=== PATIENT | male | born 1965 | race Caucasian/White ===

== ENCOUNTER 2016-03-03 18:10 | Emergency (ER) | payer OTHER ==
[~2016-03-03] VITALS: Ht 172.7 cm; Wt 63.5 kg
[~2016-03-03 18:10] MED LIST: KETOROLAC TROME10 M1 PO; MEDROL4 M2 PO; TRAMADOL HCL50 M1 PO
[2016-03-03] MEDS ORDERED: DICLOFENAC SODI75 M2 PO (19:21)
[2016-03-03] MEDS ORDERED: MULTI-DAY VITA1 EACH PO (19:22)
[2016-03-03] MEDS ORDERED: VITAMIN C500 M6 PO (19:22)
--- NOTE | 2016-03-03 19:23 | ED GI/GU/ABDOMINAL COMPLAINT ---
History of Present Illness General Chief Complaint: Abdominal Pain/Flank Pain Stated Complaint: SENT BY URGENT CARE FOR ABD. PAIN R/O APPY Source: patient Exam Limitations: no limitations Vital Signs & Intake/Output Vital Signs & Intake/Output Vital Signs Date Time Temp Pulse Resp B/P Pulse O2 O2 Flow FiO2 Ox Delivery Rate 03/03 2208 98.0 84 18 132/72 97 Room Air 03/03 2202 Room Air 03/03 2000 98.8 94 16 129/72 95 Room Air 03/03 1835 99.2 99 20 124/79 98 Room Air ED Intake and Output 03/04 0000 03/03 1200 Intake Total 1000 Output Total Balance 1000 Intake, IV 1000 Patient 140 lb Weight Allergies Coded Allergies: No Known Allergies (10/13/15) Triage Note: PT TO ED C/O LOWER ABD PAIN SINCE TUESDAY NIGHT. DENIES N/V/D. DENIES S/S. POOR PO INTAKE FOR THE PAST 2 DAYS. PT WENT TO URGENT CARE AND WAS TOLD TO COME TO ED FOR FURTHER EVAL TO R/O APPY. Triage Nurses Notes Reviewed? yes HPI: this patient is a 50-year-old male who presented to the emergency department today for evaluation of abdominal pain 4 days. The patient reported that he woke up after falling asleep on his couch Tuesday evening and noticed a pain in his lower, mid abdomen. The patient reported that it has been constant since onset and nonradiating. It is located underneath his umbilicus. The pain is sharp and cramping. It is worse with movement. The patient did not try taking any medication for his pain prior to arrival in the emergency department. No palliative factors. The patient reported that he has been having intermittent feelings of, "hot and cold." Associated nausea. He reported that he has not had anything to eat or drink since Tuesday. He reported that he tried having a coffee Tuesday morning, but reported that it made the pain worse and caused him to feel nauseous. The patient also reported that he has not had a bowel movement since Tuesday. He denied any chest pain, difficulty breathing, headaches, vomiting, back pain, numbness or tingling in his extremities, diarrhea, blood in the stool, or any urinary burning, urgency, frequency, or blood in the urine. (JOSE SOMERS,JT) Reconcile Medications Ascorbate Calcium (Vitamin C) (Unknown Strength) TABLET (Unknown Dose) PO DAILY SUPPLEMENT (Reported) Bisacodyl (Dulcolax) 5 MG TABLET. 4 TAB PO DAILY PRN COLITIS Diclofenac Sodium 75 MG TABLET. 1 TAB PO BID PAIN/INFLAMMATION (Reported) Multivitamin (Multi-Day Vitamins) 1 EACH TABLET 1 TAB PO DAILY SUPPLEMENT ( Reported) Psyllium Husk (Metamucil) 0.52 GRAM CAPSULE 1 CAP PO DAILY PRN COLITIS (KAMLESH GIBSON DO) Past History Travel History Traveled to [place] past 21 day No Medical History Any Pertinent Medical History? see below for history Surgical History Surgical History: hand surgeries bilaterally Psychosocial History What is your primary language Malawian Tobacco Use: Current Daily Use Daily Tobacco Use Amount/Type: => 5 Cigarettes daily ETOH Use: denies use Illicit Drug Use: denies illicit drug use Family History Hx Contributory? No (JT GARCIA PA-C) Review of Systems Review of Systems Constitutional: Reports: see HPI. EENTM: Reports: no symptoms. Respiratory: Reports: no symptoms. Cardiovascular: Reports: no symptoms. GI: Reports: see HPI. Genitourinary: Reports: no symptoms. Musculoskeletal: Reports: no symptoms. Skin: Reports: no symptoms. Neurological/Psychological: Reports: no symptoms. All Other Systems: Reviewed and Negative (JT GARCIA PA-C) Physical Exam Physical Exam Gastrointestinal: normal bowel sounds, soft, no organomegaly, nondistended. Rebound with no guarding upon palpation in all quadrants. Positive McBurney's point tenderness. Negative Rovsing sign. Positive psoas sign. Negative Floyd sign. No masses appreciated. Tenderness to palpation inferior to the umbilicus. Comments: Well-developed well-nourished person in no acute distress HEENT: Normal EENT exam, head normocephalic, moist mucous membranes Neck: Supple, no lymphadenopathy Back: Normal gait. Normal inspection. No CVA tenderness. No paraspinal musculature tenderness. No midline tenderness Cardiovascular: Regular rate and rhythm with no murmurs, rubs, or gallops Respiratory: No respiratory distress. Speaking in full sentences. Lungs clear to auscultation bilaterally Extremity: Normal and equal pulses Neuro: Alert oriented x3, cranial nerves normal as tested Skin: No appreciable rash on exposed skin, skin is warm and dry. Psych: Mood and affect is normal Core Measures ACS in differential dx? No Severe Sepsis Present: No Septic Shock Present: No (JOSE SOMERS,JT) Progress Differential Diagnosis: AAA, AMI, appendicitis, biliary colic, bowel obstruction , colon cancer, cholecystitis, diverticulitis, gastritis, hepatitis, ischemic bowel, inflamm bowel dis, pancreatitis, PUD/GERD, perforated viscous, pyelonephritis, ureterolithiasis, urinary retention, urethritis, UTI/pyelo Diagnostic Imaging: Viewed by Me: CT Scan. Discussed w/RAD: CT Scan. Radiology Impression: PATIENT: CAMILO VAUGHAN PRESENT AGE: 50 PATIENT ACCOUNT NO: [id number] : 66 LOCATION: [facility] ORDERING PHYSICIAN: JT GARCIA PA-C SERVICE DATE: 03/03/16 EXAM TYPE: CAT - CT ABD & PELVIS W IV CONTRAST EXAMINATION: CT ABDOMEN AND PELVIS WITH CONTRAST CLINICAL INFORMATION: Abdominal pain. COMPARISON: None. TECHNIQUE: Multidetector volumetric imaging was performed of the abdomen and pelvis before and after the IV administration of 95 mL of Optiray 320 intravenous contrast. Sagittal and coronal reformatted images were obtained on the technologist's workstation. DLP: 282.21 mGy-cm. FINDINGS: LUNG BASES: Linear scarring atelectasis at the posterior left costophrenic angle. LIVER, GALLBLADDER, AND BILIARY TREE: The liver is normal in size, shape, and attenuation. No focal hepatic lesion or biliary ductal dilatation is present. The gallbladder is unremarkable with no evidence of radiopaque gallstones, gallbladder wall thickening, or obvious pericholecystic inflammatory changes. PANCREAS: Unremarkable. SPLEEN: Unremarkable. ADRENAL GLANDS: Unremarkable. KIDNEYS AND URETERS: The kidneys are normal in size, shape, and attenuation. No hydronephrosis, hydroureter, or calculi seen. No perinephric stranding. BLADDER: Unremarkable. GASTROINTESTINAL TRACT: There is edema in the presacral space and around the distal rectum and sigmoid. The distal rectum and sigmoid is collapsed with no stool and no edema of the wall. The proximal sigmoid though is packed with stool. Small segment of the sigmoid bowel just proximal to this collection of stool is a little thickened but without edema. Moderate volume of stool in the remainder of the colon. There is a large volume of fluid in the lumen of the ascending colon mixed with a small volume of stool but none of the bowel loops are abnormally edematous or thickened. The small bowel loops are normal. The appendix is normal. ABDOMINAL WALL: Small fat-containing umbilical hernia. LYMPH NODES: No bulky lymphadenopathy. There are coarse calcifications at the lisa hepatis anterior to the IVC, that are likely and small calcified lymph nodes. VASCULAR: Unremarkable. PELVIC VISCERA: Unremarkable. OSSEOUS STRUCTURES: Unremarkable. IMPRESSION: The distal rectum and sigmoid is decompressed with no significant stool but there is edema around this segment of the bowel and there is presacral soft tissue fluid edema. Focal colitis should be considered. There is a large collection of stool more proximal in the sigmoid and a small area of focal thickening of the sigmoid just proximal to the stool collection but without significant edema. The appendix is normal. This critical result was discussed with Dr. Gibson on 03/03/2016, 9:10 PM and it was ascertained that the content and urgency of the report was understood at the time of direct communication. DICTATED BY: MANUEL KAUFFMAN MD DATE/TIME DICTATED:03/03/162045 CORE SHAPER SIDES:ROCAEL DATE/TIME TRANSCRIBED:03/03/162045 CONFIDENTIAL, DO NOT COPY WITHOUT APPROPRIATE AUTHORIZATION. <Electronically signed in Other Vendor System> SIGNED BY: MANUEL KAUFFMAN MD 03/03/16 5427 Initial ED EKG: none Comments: 03/03/2016 9:57:33 PM: Discussed this patient with Dr. Gibson. Radiology paged Dr. Gibson to discuss the results of the CT scan with him. Possible focal colitis. Recommended that this patient be discharged home with GI follow-up and Metamucil and Dulcolax. Discussed these results of the patient who is in agreement with the plan. (JOSE SOMERS,JT) Plan of Care: Orders Procedure Date/time Status LIPASE 03/03 1919 Complete LACTIC ACID 03/03 1919 Complete HIGH SENSITIVITY CRP 03/03 1919 Complete C-REACTIVE PROTEIN 03/03 1919 Complete AMYLASE 03/03 1919 Complete COMPREHENSIVE METABOLIC PANEL 03/03 183 Complete CBC WITHOUT DIFFERENTIAL 03/03 1829 Complete Laboratory Tests 03/03/16 2216: Lactic Acid Cancelled 03/03/161919: Anion Gap 15, Estimated GFR > 60, BUN/Creatinine Ratio 18.8, Glucose 98, Lactic Acid 1.2, Calcium 9.2, Total Bilirubin 0.7, AST 16 L, ALT 33, Alkaline Phosphatase 118, C-Reactive Prot, Quant > 9.0 H, C-React Prot High Sens > 15.0 H, Total Protein 7.5, Albumin 4.0, Globulin 3.5, Albumin/Globulin Ratio 1.1, Amylase < 30 L, Lipase 23, CBC w Diff MAN DIFF ORDERED, RBC 4.63 L, MCV 88.9, MCH 29.8, RDW 14.8 H, MPV 7.4, Gran % 86.2 H, Lymphocytes % 6.5 L, Monocytes % 7.3, Eosinophils % 0, Basophils % 0 L, Absolute Granulocytes 13.2 H, Segmented Neutrophils 83 H, Band Neutrophils 5, Absolute Lymphocytes 1.0 L, Lymphocytes 6 L, Monocytes 5, Absolute Monocytes 1.1 H, Absolute Eosinophils 0 , Absolute Basophils 0, Metamyelocytes 1, Platelet Estimate ADEQUATE, Anisocytosis 1+, PUBS MCHC 33.5 03/03/16 1916: Lactic Acid Cancelled, C-React Prot High Sens Cancelled, Amylase Cancelled, Lipase Cancelled, Urine Color Cancelled, Urine Clarity Cancelled, Urine pH Cancelled, Ur Specific Bedrock Cancelled, Urine Protein Cancelled, Urine Ketones Cancelled, Urine Nitrite Cancelled, Urine Bilirubin Cancelled, Urine Urobilinogen Cancelled, Ur Leukocyte Esterase Cancelled, Ur Microscopic Cancelled, Urine Hemoglobin Cancelled, Urine Glucose Cancelled 03/03/16 1830: Urine Color Cancelled, Urine Clarity Cancelled, Urine pH Cancelled, Ur Specific Bedrock Cancelled, Urine Protein Cancelled, Urine Ketones Cancelled, Urine Nitrite Cancelled, Urine Bilirubin Cancelled, Urine Urobilinogen Cancelled, Ur Leukocyte Esterase Cancelled, Ur Microscopic Cancelled, Urine Hemoglobin Cancelled, Urine Glucose Cancelled Departure Departure Disposition: HOME OR SELF CARE Condition: Stable Clinical Impression Primary Impression: Colitis Referrals: PEDRITO GODWIN,ILAN ROBERSON MD,DEBORAH (PCP/Family) Additional Instructions: Take Dulcolax and Metamucil as prescribed. Please call the doctor podiatric medicine whose information has been provided to you in this packet first thing in the morning to schedule an appointment for further evaluation and management of your symptoms. Return to the emergency department for any worsening symptoms or concerns. Departure Forms: Customer Survey General Discharge Information Prescriptions: Current Visit Scripts Psyllium Husk (Metamucil) 1 CAP PO DAILY PRN COLITIS #14 Bisacodyl (Dulcolax) 4 TAB PO DAILY PRN COLITIS #4 TAB (JOSE SOMERS,JT) Departure Comments 03/03/16 11:16 PM I reviewed the CT scan results and discussed them with the radiologist in detail. No evidence of obstruction. No evidence of ischemic bowel. Appendix is normal. No diverticulitis. Findings consistent with focal colitis. I called the patient at home. He is comfortable. He will follow-up with the doctor podiatric medicine this week and call for appointment tomorrow. He was told that should he have any abdominal pain tomorrow that he should return to the ED for reevaluation at 10 AM and that I should be paged. He understood the discharge instructions. (KAMLESH GIBSON DO)
[2016-03-03 19:32] LABS: ABSOLUTE BASOPHIL COUNT 0 /CUMM (0.0-0.2); ABSOLUTE EOSINOPHIL COUNT 0 /CUMM (0.0-0.7); ABSOLUTE GRANULOCYTE CT 13.2 /CUMM (1.4-6.5); ABSOLUTE MONOCYTE COUNT 1.1 /CUMM (0.10-0.60); BASOPHIL % 0 % (0.0-2.0); EOSINOPHIL % 0 % (0-5); HEMATOCRIT 41.2 % (42-52); MEAN CORPUSCULAR HGB 29.8 PG (27.0-31.0); MEAN CORPUSCULAR HGB CONC 33.5 G/DL (33.0-37.0); MEAN CORPUSCULAR VOLUME 88.9 FL (80.0-94.0); MEAN PLATELET VOLUME 7.4 FL (7.4-10.4); PLATELET COUNT 338 /CUMM (130-400); RBC DISTRIBUTION WIDTH 14.8 % (11.5-14.5); RED BLOOD CELL CT 4.63 /CUMM (4.70-6.10); WHITE BLOOD CELL COUNT 15.3 /CUMM (4.8-10.8)
[2016-03-03 19:33] LABS: GRANULOCYTE % 86.2 % (42.2-75.2)
--- NOTE | 2016-03-03 21:51 | CT SCAN REPORT ---
EXAMINATION: CT ABDOMEN AND PELVIS WITH CONTRAST CLINICAL INFORMATION: Abdominal pain. COMPARISON: None. TECHNIQUE: Multidetector volumetric imaging was performed of the abdomen and pelvis before and after the IV administration of 95 mL of Optiray 320 intravenous contrast. Sagittal and coronal reformatted images were obtained on the technologist's workstation. DLP: 282.21 mGy-cm. FINDINGS: LUNG BASES: Linear scarring atelectasis at the posterior left costophrenic angle. LIVER, GALLBLADDER, AND BILIARY TREE: The liver is normal in size, shape, and attenuation. No focal hepatic lesion or biliary ductal dilatation is present. The gallbladder is unremarkable with no evidence of radiopaque gallstones, gallbladder wall thickening, or obvious pericholecystic inflammatory changes. PANCREAS: Unremarkable. SPLEEN: Unremarkable. ADRENAL GLANDS: Unremarkable. KIDNEYS AND URETERS: The kidneys are normal in size, shape, and attenuation. No hydronephrosis, hydroureter, or calculi seen. No perinephric stranding. BLADDER: Unremarkable. GASTROINTESTINAL TRACT: There is edema in the presacral space and around the distal rectum and sigmoid. The distal rectum and sigmoid is collapsed with no stool and no edema of the wall. The proximal sigmoid though is packed with stool. Small segment of the sigmoid bowel just proximal to this collection of stool is a little thickened but without edema. Moderate volume of stool in the remainder of the colon. There is a large volume of fluid in the lumen of the ascending colon mixed with a small volume of stool but none of the bowel loops are abnormally edematous or thickened. The small bowel loops are normal. The appendix is normal. ABDOMINAL WALL: Small fat-containing umbilical hernia. LYMPH NODES: No bulky lymphadenopathy. There are coarse calcifications at the lisa hepatis anterior to the IVC, that are likely and small calcified lymph nodes. VASCULAR: Unremarkable. PELVIC VISCERA: Unremarkable. OSSEOUS STRUCTURES: Unremarkable. IMPRESSION: The distal rectum and sigmoid is decompressed with no significant stool but there is edema around this segment of the bowel and there is presacral soft tissue fluid edema. Focal colitis should be considered. There is a large collection of stool more proximal in the sigmoid and a small area of focal thickening of the sigmoid just proximal to the stool collection but without significant edema. The appendix is normal. This critical result was discussed with Dr. Du on 03/03/2016, 9:10 PM and it was ascertained that the content and urgency of the report was understood at the time of direct communication.
[2016-03-03] MEDS ORDERED: DULCOLAX5 M1 PO (22:04)
[2016-03-03] MEDS ORDERED: METAMUCIL0.52 GM PO (22:04)
[2016-03-03 22:09] VITALS: BP 132/72
[2016-03-04] MEDS ORDERED: GOLYTELY PACKE1 EACH PO (15:51)
[2016-03-04] MEDS ORDERED: CITRATE OF MAG300 ML PO (15:51)
[2016-03-04] MEDS ORDERED: ZOFRAN4 M2 PO (16:10)
== END 2016-03-03 22:28 ==
LOC: ERH 18:10
PROVIDERS: Physician Assistant Medical
DX: K52.9 Noninfective gastroenteritis and colitis, unspecified (principal); R10.30 Lower abdominal pain, unspecified
CPT/HCPCS: 74177; 96374; J1885

== ENCOUNTER 2016-03-04 11:23 | Emergency (ER) | payer OTHER ==
[~2016-03-04] VITALS: Ht 172.7 cm; Wt 63.5 kg
[~2016-03-04 11:23] MED LIST changes: +DICLOFENAC SODI75 M2 PO; +DULCOLAX5 M1 PO; +METAMUCIL0.52 GM PO; +MULTI-DAY VITA1 EACH PO; +VITAMIN C500 M6 PO
--- NOTE | 2016-03-04 13:16 | ED GI/GU/ABDOMINAL COMPLAINT ---
History of Present Illness General Chief Complaint: Abdominal Pain/Flank Pain Stated Complaint: ABD PAIN DISCHARGED LAST NIGHT Source: patient, old records Exam Limitations: no limitations Allergies Coded Allergies: No Known Allergies (10/13/15) Reconcile Medications Ascorbate Calcium (Vitamin C) (Unknown Strength) TABLET (Unknown Dose) PO DAILY SUPPLEMENT (Reported) Bisacodyl (Dulcolax) 5 MG TABLET.DR 4 TAB PO DAILY PRN COLITIS Diclofenac Sodium 75 MG TABLET.DR 1 TAB PO BID PAIN/INFLAMMATION (Reported) Magnesium Citrate (Citrate Of Magnesia) 300 ML SOLUTION 296 ML PO ONCE CONSTIPATION Multivitamin (Multi-Day Vitamins) 1 EACH TABLET 1 TAB PO DAILY SUPPLEMENT ( Reported) Ondansetron HCl (Zofran) 4 MG TABLET 1 TAB PO Q6-8P PRN NAUSEA Peg 3350/Na Sulf,Bicarb,Cl/KCl (Golytely Packet) 227.1-21.5 POWD.PACK 1 PAC PO ONCE PRN CONSTIPATION MIX WITH 6-8 OZ OF WATER TAKE FOR CONSTIPATION Psyllium Husk (Metamucil) 0.52 GRAM CAPSULE 1 CAP PO DAILY PRN COLITIS Triage Note: C/O WORSENING MID ABDOMINAL PAIN X 4 DAYS, DENIES NAUSEA, VOMITING OR DIARRHEA. UNABLE TO EAT BUT CAN KEEP WATER DOWN. SEEN HERE YESTERDAY, DXD WITH COLITIS AFTER CT SCAN. PAIN WORSE TODAY. Triage Nurses Notes Reviewed? yes Duration: constant Timing: recent history Quality/Severity: sharpness, severe, stabbing Severity Numbers: 10 Location: generalized abdomen Radiation: no radiation Activities at Onset: none Prior Abdominal Problems: similar symptoms HPI: Patient is a 50-year-old male with concerns of a 5 day history of abdominal pain. It is noted through old records that patient has been complaining of lower mid abdominal pain has been constant and nonradiating located underneath the umbilicus. Pain is considered sharp and cramping worse with movement. Denies any palliative factors has associated symptoms of nausea Patient was seen and evaluated at [place] emergency room yesterday for concerns of symptoms in which she received blood work showing 15,000 white blood cell count and CT scan showing focal colitis. Patient was safely discharged home for patient returns today stating that since his discharge he's had worsening localized pain pain and distention. Patient has been tolerating toast and yogurt today with worsening pain however no vomiting has occurred. Last bowel movement was approximately 4 days ago. Patient states that he feels no better with the prescriptions of ketorolac administered from the emergency room. Patient did receive a phone call from emergency department Dr. Du and he advised patient to return to emergency room for concerning worsening symptoms. (SELAM WOODS) Vital Signs & Intake/Output Vital Signs & Intake/Output Vital Signs Date Time Temp Pulse Resp B/P Pulse O2 O2 Flow FiO2 Ox Delivery Rate 03/04 1529 18 122/58 97 03/04 1155 99.3 75 18 132/75 18 Room Air Past History Travel History Traveled to [facility] past 21 day No Medical History Any Pertinent Medical History? none Neurological: NONE Surgical History Surgical History: hand surgeries bilaterally Psychosocial History What is your primary language Guyanese Tobacco Use: Current Daily Use Daily Tobacco Use Amount/Type: => 5 Cigarettes daily ETOH Use: denies use Family History Hx Contributory? No (SELAM WOODS) Review of Systems Review of Systems Constitutional: Reports: no symptoms. EENTM: Reports: no symptoms. Respiratory: Reports: no symptoms. Cardiovascular: Reports: no symptoms. GI: Reports: see HPI, abdominal pain. Genitourinary: Reports: no symptoms. Musculoskeletal: Reports: no symptoms. Skin: Reports: no symptoms. Neurological/Psychological: Reports: no symptoms. Hematologic/Endocrine: Reports: no symptoms. Immunologic/Allergic: Reports: no symptoms. All Other Systems: Reviewed and Negative (SELAM WOODS) Physical Exam Physical Exam General Appearance: no apparent distress, alert Gastrointestinal: no organomegaly, distention, GENERALIZED POINT TENDERNESS Comments: Well-developed well-nourished person in no acute distress HEENT: Normal EENT exam, extraocular motion intact, no nystagmus. Pupils equally round and reactive to light and accommodation. Nose is atraumatic. External auditory canal and Tympanic membranes clear. Pharynx normal. No swelling or edema. Neck: Supple, no lymphadenopathy, normal range of motion without pain or tenderness Back: Nontender, no CVA tenderness. Cardiovascular: Regular rate and rhythms no murmurs rubs or gallops, normal JVP Respiratory: Chest nontender. No respiratory distress.breath sounds clear to auscultation bilaterally Extremity: No edema, no calf tenderness to palpation, normal and equal pulses. Neuro: Alert oriented x3, motor sensory normal, Skin: No appreciable rash on exposed skin, skin is warm and dry. Psych: Mood and affect is normal, memory and judgment is normal. Core Measures ACS in differential dx? No Severe Sepsis Present: No Septic Shock Present: No (KERRI SILVER,SELAM) Progress Differential Diagnosis: AAA, AMI, appendicitis, biliary colic, bowel obstruction , colon cancer, cholecystitis, diverticulitis, epididymitis, esophageal varices, gastritis, hepatitis, hernia, hemorrhoids, ischemic bowel, inflamm bowel dis, Leatha-Luis tear, orchitis, pancreatitis, prostatitis, peptic ulcer, PUD/GERD, perforated viscous, pyelonephritis, SBO, STD, testicular torsion, ureterolithiasis, urinary retention, urethritis, UTI/pyelo Diagnostic Imaging: Viewed by Me: CT Scan. Radiology Impression: SEE COMMENTS Initial ED EKG: none Comments: PATIENT: CAMILO VAUGHAN PRESENT AGE: 50 PATIENT ACCOUNT NO: [id number] : 67 LOCATION: [facility] ORDERING PHYSICIAN: KAMLESH SEXTON MD SERVICE DATE: 03/04/16 EXAM TYPE: CAT - CT ABD & PELVIS W/ ORAL CONTRA EXAMINATION: CT ABDOMEN AND PELVIS WITHOUT CONTRAST CLINICAL INFORMATION: Abdominal pain. COMPARISON: CT abdomen and pelvis with contrast 03/03/2015. TECHNIQUE: Multidetector volumetric imaging was performed from the superior aspect of the liver through the pubic symphysis following administration of oral contrast. Sagittal and coronal reformatted images were obtained on the technologist's workstation. DLP: 274 mGy-cm. FINDINGS: Limited evaluation of the solid abdominal viscera in the absence of intravenous contrast. LUNG BASES: The visualized lung bases are unremarkable. LIVER, GALLBLADDER, AND BILIARY TREE: The liver is normal in size, shape, and attenuation. No contour deforming hepatic lesion or biliary ductal dilatation is present. The gallbladder is unremarkable with no evidence of radiopaque gallstones, gallbladder wall thickening, or obvious pericholecystic inflammatory changes. PANCREAS: Unremarkable. SPLEEN: Unremarkable. ADRENAL GLANDS: Unremarkable. KIDNEYS AND URETERS: The kidneys are normal in size, shape and contour. No contour deforming renal lesions are identified. No renal or ureteral stones are identified and there is no hydroureteronephrosis of either kidney or renal collecting system BLADDER: Excreted contrast is identified within the urinary bladder. GASTROINTESTINAL TRACT: In comparison to the prior examination, there has been interval increased circumferential thickening and pericolonic inflammatory changes surrounding the rectosigmoid colon, with a minimal amount of retained stool identified within the proximal segment of the sigmoid colon. The mid and distal segments of the rectosigmoid colon are decompressed and there is persistent circumferential bowel wall thickening with surrounding pericolonic inflammatory changes. The degree of pericolonic inflammatory changes surrounding the sigmoid colon has increased in severity relative to the prior examination. This could reflect a focal acute infectious or inflammatory colitis. There are no extraluminal foci of air to suggest perforation. There are mildly prominent loops of small bowel within the lower abdomen, adjacent to the rectosigmoid colon. However, there is no visible transition point. Mild prominence of the small bowel within the lower abdomen slightly secondary to ileus. There are no visible organizing intra-abdominal or pelvic fluid collections and there is no free intraperitoneal air. ABDOMINAL WALL: No significant hernia is appreciated. LYMPH NODES: No significant abdominal or pelvic adenopathy. VASCULAR: Normal course and caliber of the abdominal aorta and its branching vessels, without aneurysmal dilatation. Limited evaluation for vascular patency in the absence of intravenous contrast. PELVIC VISCERA: Unremarkable. OSSEOUS STRUCTURES: No acute osseous abnormality. Normal alignment of the imaged thoracolumbar spine. IMPRESSION: Interval increased circumferential thickening and diffuse pericolonic inflammatory changes surrounding the rectosigmoid colon. Redemonstrated is minimal retained stool within the proximal segment of the sigmoid colon. The mid and distal segments of the rectosigmoid colon remains decompressed. The degree of pericolonic inflammatory changes has increased in severity relative to the prior examination. There are no extraluminal foci of air to suggest perforation. Differential diagnostic considerations include but are not limited to a focal infectious or inflammatory colitis. Stercoral colitis should also be considered. There are mildly prominent loops of small bowel within the lower abdomen, adjacent to the inflamed rectosigmoid colon. There are no visible transition points. This likely reflects small bowel ileus and adjacent inflammatory changes. (SELAM WOODS) Plan of Care: Orders Procedure Date/time Status LACTIC ACID 03/04 1617 Active LIPASE 03/04 1330 Complete LACTIC ACID 03/04 1330 Complete AMYLASE 03/04 1330 Complete CBC WITHOUT DIFFERENTIAL 03/04 1144 Complete BASIC METABOLIC PANEL 03/04 1144 Complete Laboratory Tests 03/04/16 1330: Anion Gap 14, Estimated GFR > 60, BUN/Creatinine Ratio 21.4, Glucose 96, Lactic Acid 1.0, Calcium 9.1, Amylase < 30 L, Lipase 35, CBC w Diff NO MAN DIFF REQ, RBC 4.30 L, MCV 88.8, MCH 30.0, RDW 14.6 H, MPV 7.2 L, Gran % 88.0 H, Lymphocytes % 5.8 L, Monocytes % 5.9, Eosinophils % 0.1, Basophils % 0.2, Absolute Granulocytes 13.6 H, Absolute Lymphocytes 0.9 L, Absolute Monocytes 0.9 H, Absolute Eosinophils 0, Absolute Basophils 0, PUBS MCHC 33.7 03/04/16 1317: Lactic Acid Cancelled, Amylase Cancelled, Lipase Cancelled Patient currently is in no apparent distress however is complaining of 10 at [address] scan does show concerns of worsening circumferential inflammation or colitis in which I discussed patient and CT scan results with gastric urologist Dr. Houston who states that patient would most likely need a enema and to follow-up outpatient. I discussed plan with patient to receive enema in the emergency room and he declined patient will be given magnesium citrate for a prescription and GoLYTELY. Patient was strongly advised to follow up with gastroenterology for further evaluation and a colonoscopy and he will comply. Upon discharge patient looks well no apparent distress and will comply with discharge instructions and had no questions. Patient was able tolerate by mouth on discharge. Discussed before Dr. Sexton who agrees with disposition and plan (SELAM WOODS) Departure Departure Disposition: HOME OR SELF CARE Condition: Stable Clinical Impression Primary Impression: Abdominal pain Secondary Impressions: Colitis, Constipation Referrals: PEDRITO GODWIN,ILAN ROBERSON MD,DEBORAH (PCP/Family) Additional Instructions: As discussed you have a follow-up appointment established with Dr. MAJOR on Tuesday, please go to this appointment. Begin drinking plenty of water for hydration. Begin and continue your previously prescribed stool softeners and begin the prescription of ketorolac for pain and inflammation. Begin the prescription of magnesium citrate to promote bowel movements. If no bowel movement has occurred begin the prescription of GoLYTELY. Continue to drink plenty of water for hydration. If symptoms worsen return to emergency room. Begin the prescription of Zofran for nausea if needed. Prescriptions are waiting at your pharmacy. Departure Forms: Customer Survey General Discharge Information Prescriptions: Current Visit Scripts Magnesium Citrate (Citrate Of Magnesia) 296 ML PO ONCE #296 ML Ref 1 Peg 3350/Na Sulf,Bicarb,Cl/KCl (Golytely Packet) 1 PAC PO ONCE PRN CONSTIPATION #1 PAC Ref 1 MIX WITH 6-8 OZ OF WATER TAKE FOR CONSTIPATION Ondansetron HCl (Zofran) 1 TAB PO Q6-8P PRN NAUSEA #15 TAB (SELAM WOODS) PA/[employer] PROC[employer] DEPLOYMENT CONSULTANT Co-Sign Statement Statement: ED Attending supervision documentation- [X] I saw and evaluated the patient. I have also reviewed all the pertinent lab results and diagnostic results. I agree with the findings and the plan of care as documented in the PA's/LEAN PROCESS DEPLOYMENT CONSULTANT's documentation. [] I have reviewed the ED Record and agree with the PA's/LEAN PROCESS DEPLOYMENT CONSULTANT's documentation. [] Additions or exceptions (if any) to the PAs/LEAN PROCESS DEPLOYMENT CONSULTANT's note and plan are summarized below: [] (SHANE GODWIN,KAMLESH Flores)
[2016-03-04 13:45] LABS: ABSOLUTE BASOPHIL COUNT 0 /CUMM (0.0-0.2); ABSOLUTE EOSINOPHIL COUNT 0 /CUMM (0.0-0.7); ABSOLUTE GRANULOCYTE CT 13.6 /CUMM (1.4-6.5); ABSOLUTE LYMPH COUNT 0.9 /CUMM (1.2-3.4); ABSOLUTE MONOCYTE COUNT 0.9 /CUMM (0.10-0.60); BASOPHIL % 0.2 % (0.0-2.0); EOSINOPHIL % 0.1 % (0-5); HEMATOCRIT 38.2 % (42-52); MEAN CORPUSCULAR HGB CONC 33.7 G/DL (33.0-37.0); MEAN CORPUSCULAR VOLUME 88.8 FL (80.0-94.0); MEAN PLATELET VOLUME 7.2 FL (7.4-10.4); RBC DISTRIBUTION WIDTH 14.6 % (11.5-14.5); WHITE BLOOD CELL COUNT 15.4 /CUMM (4.8-10.8)
[2016-03-04 14:02] LABS: PLATELET COUNT 352 /CUMM (130-400)
--- NOTE | 2016-03-04 14:24 | CT SCAN REPORT ---
EXAMINATION: CT ABDOMEN AND PELVIS WITHOUT CONTRAST CLINICAL INFORMATION: Abdominal pain. COMPARISON: CT abdomen and pelvis with contrast 03/03/2015. TECHNIQUE: Multidetector volumetric imaging was performed from the superior aspect of the liver through the pubic symphysis following administration of oral contrast. Sagittal and coronal reformatted images were obtained on the technologist's workstation. DLP: 274 mGy-cm. FINDINGS: Limited evaluation of the solid abdominal viscera in the absence of intravenous contrast. LUNG BASES: The visualized lung bases are unremarkable. LIVER, GALLBLADDER, AND BILIARY TREE: The liver is normal in size, shape, and attenuation. No contour deforming hepatic lesion or biliary ductal dilatation is present. The gallbladder is unremarkable with no evidence of radiopaque gallstones, gallbladder wall thickening, or obvious pericholecystic inflammatory changes. PANCREAS: Unremarkable. SPLEEN: Unremarkable. ADRENAL GLANDS: Unremarkable. KIDNEYS AND URETERS: The kidneys are normal in size, shape and contour. No contour deforming renal lesions are identified. No renal or ureteral stones are identified and there is no hydroureteronephrosis of either kidney or renal collecting system BLADDER: Excreted contrast is identified within the urinary bladder. GASTROINTESTINAL TRACT: In comparison to the prior examination, there has been interval increased circumferential thickening and pericolonic inflammatory changes surrounding the rectosigmoid colon, with a minimal amount of retained stool identified within the proximal segment of the sigmoid colon. The mid and distal segments of the rectosigmoid colon are decompressed and there is persistent circumferential bowel wall thickening with surrounding pericolonic inflammatory changes. The degree of pericolonic inflammatory changes surrounding the sigmoid colon has increased in severity relative to the prior examination. This could reflect a focal acute infectious or inflammatory colitis. There are no extraluminal foci of air to suggest perforation. There are mildly prominent loops of small bowel within the lower abdomen, adjacent to the rectosigmoid colon. However, there is no visible transition point. Mild prominence of the small bowel within the lower abdomen slightly secondary to ileus. There are no visible organizing intra-abdominal or pelvic fluid collections and there is no free intraperitoneal air. ABDOMINAL WALL: No significant hernia is appreciated. LYMPH NODES: No significant abdominal or pelvic adenopathy. VASCULAR: Normal course and caliber of the abdominal aorta and its branching vessels, without aneurysmal dilatation. Limited evaluation for vascular patency in the absence of intravenous contrast. PELVIC VISCERA: Unremarkable. OSSEOUS STRUCTURES: No acute osseous abnormality. Normal alignment of the imaged thoracolumbar spine. IMPRESSION: Interval increased circumferential thickening and diffuse pericolonic inflammatory changes surrounding the rectosigmoid colon. Redemonstrated is minimal retained stool within the proximal segment of the sigmoid colon. The mid and distal segments of the rectosigmoid colon remains decompressed. The degree of pericolonic inflammatory changes has increased in severity relative to the prior examination. There are no extraluminal foci of air to suggest perforation. Differential diagnostic considerations include but are not limited to a focal infectious or inflammatory colitis. Stercoral colitis should also be considered. There are mildly prominent loops of small bowel within the lower abdomen, adjacent to the inflamed rectosigmoid colon. There are no visible transition points. This likely reflects small bowel ileus and adjacent inflammatory changes.
[2016-03-04 15:29] VITALS: BP 122/58
[2016-03-04] MEDS ORDERED: CITRATE OF MAG300 ML PO (15:51)
[2016-03-04] MEDS ORDERED: GOLYTELY PACKE1 EACH PO (15:51)
[2016-03-04] MEDS ORDERED: ZOFRAN4 M2 PO (16:10)
== END 2016-03-04 16:21 ==
LOC: ERH 11:23
PROVIDERS: Emergency Medicine
DX: K52.9 Noninfective gastroenteritis and colitis, unspecified (principal); K59.00 Constipation, unspecified
CPT/HCPCS: 74176; 96374; 96375; J2405